=== PATIENT | female | born 1960 | race Caucasian/White ===

== ENCOUNTER 2016-03-30 09:09 | Day surgery (SDC) | payer OTHER ==
[~2016-03-30] VITALS: Ht 172.1 cm; Wt 102.0 kg
[2016-03-30] VITALS (13 sets, daily range): BP systolic 122–153; BP diastolic 69–95; PULSE 77–96; RESP 12–20; O2SAT 91–100
--- NOTE | 2016-03-30 06:41 | PCM.HPANE ---
Patient Data Surgeon Admitting Provider: Attending Provider:Kirby West MD Primary Care Physician:Emmett Juarez MD Other Provider:Viola Mattingham Anesthesia Reason for Visit Right Ankle Fracture Ht/WT & BMI Height (Feet): 5 Height (Inches): 7.75 Weight (Kilograms): 103.3 Body Mass Index 34.00 Allergies Coded Allergies: Sulfa (Sulfonamide Antibiotics) (Unverified Allergy, Severe, HIVES, ) ibuprofen (Unverified Allergy, Severe, HIVES, 08/10/13) fexofenadine (Unverified Allergy, Unknown, UNKNOWN, 08/10/13) terbinafine (Unverified Allergy, Unknown, UNKNOWN ("VERY ILL"), 08/10/13) ofloxacin (Unverified Adverse Reaction, Severe, GI UPSET, 08/10/13) Uncoded Allergies: PEANUTS (Allergy, Unknown, UNKNOWN, 08/10/13) Past Anesthesia History Anesthesia History: Denies:: Abnormal Airway, Anesthesia Reactions, Difficult Intubation, Fam Anesthesia Reaction, Malignant Hyperthermia Diabetes History Hx Diabetes?: Yes (Hgb A1C - ) Type of Diabetes: Type II Glycemic Control: Insulin Dependent MRSA MRSA: No Medications Blood Thinner: Aspirin Hypertension Medication: Yes (pt states is not hypertensive- takes irbesartan to protect organs) Home Meds Incl Beta Ammon: No Reported Medications Nystatin 20 Applic/15 Gm Oint30 Applic EXT BID 03/28/16 Multivitamin (Multi Vitamin Daily)1 Each Tablet1 Each PO DAILY 30 Days Ref 0 03/28/16 Flint-3 Acid Ethyl Esters (Lovaza)1 Gm Capsule2 Gm PO BID #30 CAPSULE Ref 0 03/28/16 Insulin Glargine (Lantus U100 Insulin Vial)100 Unit/Ml Muuh29-46 Unit SUBQ DAILY #1 VIAL Ref 0 03/28/16 Clonazepam (Klonopin)1 Mg Tablet1 Mg PO BID PRN For Anxiety Ref 0 03/28/16 Irbesartan 75 Mg Uzuioa12 Mg PO DAILY 03/28/16 Hydrocodone-Acetaminophen 5-325 mg 1 Each Tablet1 Tablet PO Q4H PRN For Pain Ref 0 03/28/16 Insulin Human Lispro (HumaLOG U100 Insulin Vial)100 Unit/Ml Unit10 Unit SUBQ TID #1 VIAL Ref 0 Check blood sugars before meals and at bedtime. Use correction factor only before meals. Blood Sugar Lispro Correction: <151, 0 units; 151-175, 1 unit; 176-200, 2 units; 201-225, 3 units; 226-250, 4 units; 251-275, 5 units; 276-300, 6 units; 301-325, 7 units; 326-350, 8 units; 351-375, 9 units; 376-400, 10 units; >400, 12 units. 03/28/16 Atorvastatin (Lipitor)20 Mg Hkudfo98 Mg PO DAILY Ref 0 03/28/16 Aspirin 81 Mg Elzhvn97 Mg PO DAILY Ref 0 03/28/16 Discontinued Reported Medications oxyCODONE-Acetaminophen 5-325 mg 1 Each Tablet1 Tab PO Q6H PRN For Pain Ref 0 03/28/16 Nortriptyline 25 Mg Iggmvid83 Mg PO HS 03/28/16 Clindamycin Phosphate (Clindagel)40 Ml Gel..ml.1 Applic TP BID #40 ML Ref 0 03/28/16 Albuterol HFA (Proair HFA)8.5 Gm Hfa.aer.ad1-2 Puffs IH Q 4-6HRS PRN PRN For Shortness of Breath #1 INHALER 08/10/13 Insulin Glargine (Lantus U100 Solostar Insulin Pen)100 Unit/1 Ml Insuln.pen75 Unit SUBQ QPM-INSULIN #1 PENINJ Ref 0 08/10/13 Nystatin 60 Applic/15 Gm Cream60 Applic TOP BID 100,000U/GM 08/10/13 Flint-3 Acid Ethyl Esters (Lovaza)1 Gm Capsule2 Gm PO BID #30 CAPSULE Ref 0 08/10/13 Clonazepam (Klonopin)0.5 Mg Tablet0.5-1 Mg PO BID PRN For Anxiety 30 Days Ref 0 08/10/13 Hydrocodone-Acetaminophen 5-325 mg 1 Each Tablet1 Each PO Q 6HRS PRN PRN For Pain Ref 0 08/10/13 Fluticasone Propionate (Flonase Nasal)16 Gm Largo.susp1 Largo NS BID #16 GM Ref 0 08/10/13 Lidocaine/Prilocaine (Emla Cream)5 Gm Kit5 Gm TOP PRN PRN For Pain 08/10/13 Clindamycin 300 Mg Rzxjtqs017 Mg PO QID 10 Days Ref 0 08/10/13 Clindamycin Phosphate (Cleocin T)60 Gm Gel..gram.60 Gm TP BID 08/10/13 Mupirocin Oint (Bactroban Oint)22 Gm Oint...g.1 Appl TOP TID #1 TUBE Ref 0 08/10/13 Aspirin (Aspir 81)81 Mg Tablet.dr81 Mg PO DAILY Ref 0 08/10/13 History History of ENT Problems?: Yes HEENT History: Denies:: Abnormal Airway Cataracts Difficult Intubation Dysphagia Glaucoma Hearing Problem Sinus Problem TMJ Hx of Heart Problems?: No Cardiovascular History: Denies:: AICD Abdominal Aortic Aneurism Heart Murmur Hypertension Irregular Heartbeat Pacemaker Hx of Respiratory Problem?: No Respiratory History: Denies:: Asthma COPD Emphysema Oxygen Administration Pneumonia Tuberculosis Use of C-PAP Machine Use of Inhalers / NEBS Hx Neurologic Problems?: Yes Neurological History: Positive for:: Headaches Denies:: CVA Multiple Sclerosis Parkinson's Disease Seizures TIA Hx of GI Problems?: Yes Gastrointestinal History: Denies:: Gall Bladder Disease Gastroesphageal Reflux Gastrointestinal Bleeding (ULCERATIVE COLITIS) Heartburn Hepatitis Hiatal Hernia Liver Disease Rectal Bleeding (HX OF RECTAL ABCESSES) Other GI Pertinent History: ileostomy- currently , hx of chronic perineal abscesses Hx of Problems?: No Genitourinary History: Denies:: Kidney Stones Urinary Tract Infection Female Hx: Positive for:: Problems with Breasts? (macromastia) Denies:: Currently (post menopausal) Endometriosis Skin History: Positive for:: History Skin Disorders? (hydroadenitis groin/ axillary hx) Denies:: Pressure Ulcers Hx Musculoskeletal Problems?: Yes Musculoskeletal History: Positive for:: Musculoskeletal Trauma (fx right ankle current admission problem) Denies:: Back Injury Fibromyalgia Joint Replacement Myasthenia Gravis Osteoarthritis Systemic Lupus Hx of Psycho/Social Problems?: Yes Psycho Social History: Positive for:: Anxiety Hx Surgeries?: Yes (PERINEAL PROCTECTOMY,PERINEAL RPRS,COLON RESECTION/ ILEOSTOMY,RT AX EXC HYDR) Hx Any Other Health Problems?: Yes Other History: Positive for:: Hospitalization Denies:: Cancer Endocrine Disease Thyroid Disease History Blood Transfusions: Positive for:: Accept Blood Products? Denies:: Blood Transfusions Hx Diabetes: Yes (Hgb A1C - ) Hx Alcohol Use: NoHx Substance Use: NoHave You Smoked inLast 12 mo: No Stop/Bang S-Snoring: Do You Snore Loudly: No T-Tired: feel tired, fatigued: Yes O-Obsered: Observed not breath: No P-Blood Pressure: treated: No B- Body Mass Index > 35 kg/m2: Yes A- Age over 50: Yes N- Neck Large Circumference: No G- Gender Male: No CAMILLE Total Score: 3 CAMILLE Risk Assessment: High Risk, =/>3 Yes CAMILLE Category 4 OutPt Procedure: Yes Risk Assessment Category Category 1A: Patient has history of documented sleep apnea, and HAS NOT received any narcotic, sedative or anesthesia administration during this stay. Category 1B: Patient has history of documented sleep apnea, and HAS received any narcotic , sedative or anesthesia administration during this stay Category 2: Patient has SUSPECTED Obstructive Sleep Apnea, and HAS received any narcotic , sedative or anesthesia administration during this stay. Category 3: Patient has SUSPECTED Obstructive Sleep Apnea and HAS NOT received narcotic, sedative or anesthesia administration during this stay. Category 4: Outpatient in Procedural Areas with known sleep apnea or who screen positive for High Risk via the STOP/BANG questionnaire. Exam Exam General Appearance: Alert, Oriented X3, Cooperative, No Acute Distress HEENT/AIRWAY: MP 2 Lungs: Clear to Auscultation, Normal Air Movement Heart: Exam Unremarkable, Regular Rate/Rhythm, No Murmurs/Rubs/Gallops Plan Impression Patient chart reviewed, patient interviewed and anesthestic plan with risks, benefits, and alternatives discussed, and informed consent obtained. NPO Status: 0200 08/11/13 [facility] ASA Physical Status: ASA3 Severe Disease Anesthetic Plan: GA Bene/Risks/Altern/Consents: Yes HP Complete Prior to Induction: Yes Other interview and permit before Rx for Fentanyl and Midazolam for Pain and anxiety Cheryl Sparks MD Mar 30, 2016 06:41
[~2016-03-30 09:09] MED LIST: ASPI-973 PO; ATOR20TA PO; CLIN40GE TP; CLON1TAB PO; CeFAZolin 2 Gm/50 mL D5W IV Premix IV ONE; HYDR-4003 PO; INSLIS SUBQ; INSU100V7 SUBQ; IRBE75TA10 PO; MULT-1018 PO; MYCO EXT; NORT25CA PO; OMEG1CAP2 PO; OXYC1TAB24 PO
[2016-03-30] MEDS ORDERED: fentaNYL-PF 50 mCg/mL 2 mL Inj ONE (09:10)
[2016-03-30] MEDS ORDERED: Ondansetron 2 mg/mL 2 mL Inj ONE (09:10)
[2016-03-30] MEDS ORDERED: Propofol 10,000 mCg/mL 20 mL Inj ONE (09:10)
[2016-03-30] MEDS ORDERED: Dexamethasone 4 mg/mL Inj ONE (09:10)
[2016-03-30] MEDS: Lactated Ringer's 1,000 ML IV SCH ×2 (09:16→12:06)
[2016-03-30] MEDS: fentaNYL-PF 50 mCg/mL 2 mL Inj IVPUSH PRN ×6 (10:50→14:45)
[2016-03-30] MEDS ORDERED: Lactated Ringer's 1,000 ML IV SCH (12:37)
[2016-03-30] MEDS ORDERED: Lactated Ringer's 500 ML IV PRN (12:37)
[2016-03-30] MEDS ORDERED: Labetalol 5 mg/mL 4 mL Inj IV PRN (12:40)
[2016-03-30] MEDS ORDERED: EPHEDrine Sulfate 50 mg/mL Inj IVPUSH PRN (12:40)
[2016-03-30] MEDS ORDERED: fentaNYL-PF 50 mCg/mL 2 mL Inj IVPUSH PRN (12:40)
[2016-03-30] MEDS ORDERED: hydrALAZINE 20 mg/mL Inj IVPUSH PRN (12:40)
[2016-03-30] MEDS ORDERED: Ondansetron 2 mg/mL 2 mL Inj IVPUSH PRN (12:40)
[2016-03-30] MEDS ORDERED: Dexamethasone 4 mg/mL Inj IVPUSH PRN (12:40)
[2016-03-30] MEDS ORDERED: Phenylephrine 10,000 mCg/mL Inj IVPUSH PRN (12:40)
[2016-03-30] MEDS ORDERED: HYDROmorphone 1 mg/mL Inj IVPUSH PRN (12:40)
[2016-03-30] MEDS ORDERED: Atropine 0.4 mg/mL Inj IVPUSH PRN (12:40)
[2016-03-30] MEDS ORDERED: MetoCLOpramide 5 mg/mL 2 mL Inj IVPUSH PRN (12:40)
[2016-03-30] MEDS ORDERED: Bacitracin 50,000 unit Inj IRRIGATION ONE (12:47)
[2016-03-30] MEDS ORDERED: Ropivacaine-PF 0.5% 30 mL Inj INJ ONE (12:47)
[2016-03-30] MEDS ORDERED: HYDROcodone-APAP 5-325 mg Tablet PO PRN (13:30)
--- NOTE | 2016-03-30 13:33 | PCM.ORTHOP ---
Orthopedic Operative Report Date of Service: Mar 30, 2016 Pre Operative Diagnosis Right ankle fracture Post Operative Diagnosis Right ankle fracture Procedure Right ankle open reduction internal fixation, bimalleolar Surgeon Surgeon: Kirby West MD Assistants: Vishnu Lance Indication for Procedure Right ankle fracture Findings Displaced distal fibular fracture with less than 25% posterior malleolus fracture Details of Procedure Indications: Elo White is a 55-year-old female who sustained a right bimalleolar ankle fracture. A clear explanation was given to the patient regarding the condition present, and the available conservative and surgical options. It was emphasized that the risks and benefits of surgery include but are not limited to infection, wound healing problems, damage to adjacent structures such as nerves, blood vessels and tendons, mine development engineer disability and pain, arthritis, hypersensitivity, deep vein thrombosis, pulmonary embolism, broken hardware, failure of surgery, need for further procedures at time of surgery or later, cast related problems, loss of limb or life. The patient was given an explanation and the patient voiced understanding of what to expect after the procedure or surgery, the limitations in activities of daily living, the likely duration for post operative recovery and the instructions that are to be followed. At the end the patient was invited to seek clarification or ask further questions but there were none. The patient voiced understanding of the entire consultation. Description of Operation: The patient was brought to the operating room. Patient name and surgical site were confirmed. Preoperative antibiotics were given. The patient was placed supine on the operating table. General anesthesia was administered. A well padded tourniquet was placed on the leg. The leg was then prepped and draped in the usual sterile fashion. The leg was exsanguinated and the tourniquet was inflated. The lateral malleolus was addressed first. An incision was made over the lateral ankle. Subcutaneous dissection was performed down to the lateral malleolus. Care was taken to avoid injury to the superficial peroneal nerve. The fracture was cleaned of debris and interposed soft tissue. The fracture was reduced to anatomic alignment using reduction clamps and preliminary fixation techniques. There was minimal comminution and bone was amenable to lag screw fixation. The lag screw was placed after reduction was obtained. Fluoroscopy was used to confirm satisfactory reduction. A distal fibular plate was then placed and secured in position using 3.5 mm fully threaded cortical screws proximally and 3.5 mm locking screws distally. Solid bony purchase was achieved with a combination of locking and nonlocking screws. Fluoroscopy was used to confirm satisfactory reduction. The ankle joint was stressed and the syndesmosis was found to be stable along with no subluxation of the joint on the lateral view so the decision was made not to fix the posterior malleolus fracture which was stable. The tourniquet was deflated. Hemostasis was obtained with electrocautery. The wounds were thoroughly irrigated with bulb irrigation. The wounds were then closed in layers. The incisions were cleaned and dressed with Adaptic, gauze, and soft roll. A well padded plaster splint was then placed and wrapped with an Jef bandage. Estimated blood loss was 15 cc. There were no immediate complications. The patient was transferred to the PACU in stable condition. I was present for the entire procedure. LEVERMAN SURGEON: During the operation, the services of physician photography assistant were medically indicated and necessary to provide exposure of the operative site for the surgical procedure and to maintain the limb in a proper position to carry out the operation safely and efficiently. Without the qualified ict sales assistant being present, it would have extended the operative procedure and made the procedure technically more difficult to perform. Specimens Obtained: none Grafts, Implants: Implants-See Implant Record Complications There were no periprocedural complications identified. Condition Stable Anesthetic Administered: GA Catheters: None Output, Estimated Blood Loss: 15 Blood Admin during surgery: No Surgical Cast or Splint: Well-padded Short Leg Splint Surgical Specimen Removed: No Specimen sent to Pathology: No copies to: Kirby West MD, Christopher L MD Mar 30, 2016 13:32
--- NOTE | 2016-03-30 14:14 | PCM.ANEP1 ---
Post Anesthesia Phase 1 PACU Phase 1 Assessment Date of Service: Mar 30, 2016 Vital Signs Vital Signs Date Time Temp Pulse Resp B/P Pulse Ox O2 Delivery O2 Flow Rate FiO2 03/30/16 14:10 85 20 139/82 95 Room Air 03/30/16 14:00 36.6 88 16 141/75 95 Room Air 03/30/16 13:55 88 17 146/88 99 Room Air 03/30/16 13:50 88 13 130/85 100 Room Air 03/30/16 13:45 88 14 124/93 99 Simple Mask 8 03/30/16 13:40 92 14 97 Simple Mask 8 03/30/16 13:35 36.2 96 12 153/95 97 Simple Mask 8 03/30/16 10:08 36.5 92 18 122/75 95 Room Air Anesthetic Administered: GA Level of Alertness: Awake, talking FERREIRA's with Equal Strength: Yes Pain: No Nausea or Vomiting: No Oxygen Delivery: Simple Mask Lungs: Clear to Auscultation, Normal Air Movement Cheryl Sparks MD Mar 30, 2016 14:14
[2016-03-30] MEDS ORDERED: Lactated Ringer's 1,000 ML IV ONE (14:20)
--- NOTE | 2016-03-30 15:58 | PCM.ANEP2 ---
Post Anesthesia Evaluation ASA/CMS Post Anesthesia VS in Patient's Normal Range?: Yes Resp Stable; Airway Patent?: Yes CV Function & Hydration Stable: Yes Mental Status Recovered?: Yes Pain control Satisfactory?: Yes N/V Control Satisfactory?: Yes Cheryl Sparks MD Mar 30, 2016 15:58
== END 2016-03-30 23:59 | disposition home or self-care (01) ==
LOC: SAS 09:09
PROVIDERS: ATTEND Orthopaedic Surgery
DX: S82.841A Displaced bimalleolar fracture of right lower leg, initial encounter for closed fracture (principal); E11.9 Type 2 diabetes mellitus without complications; Z79.4 Long term (current) use of insulin; Z93.2 Ileostomy status
CPT/HCPCS: 27814; 76000; C1713; J0690; J1100; J2250; J2405; J2795; J7120